=== PATIENT | male | born 1935 | race Caucasian/White ===

== ENCOUNTER 2017-03-16 22:20 | Emergency (ER) | payer OTHER ==
[~2017-03-16] VITALS: Ht 177.8 cm; Wt 72.6 kg
[2017-03-17] MEDS ORDERED: SODIUM CHLORIDE 0.9% 1,000 ML IV ONE
[2017-03-17 00:35] VITALS: BP 136/81
[2017-03-17 01:16] LABS: Basophils # (auto) 0.2 uL; Basophils % (auto) 1.3 % (0.0-2.0); Eosinophils # (auto) 0.4 uL; Eosinophils % (auto) 2.5 % (0.0-7.0); Hematocrit 33.6 % (41.0-53.0); Hemoglobin 10.7 g/dL (13.5-17.5); Lymphocytes # (auto) 0.7 uL; Lymphocytes % (auto) 4.9 % (10.0-50.0); Mean Corpuscular Hemoglobin 27.7 pg (28.0-32.0); Mean Corpuscular Hgb Conc. 31.8 g/dL (32.0-36.0); Mean Corpuscular Volume 87.1 fL (80.0-100.0); Mean Platelet Volume 8.8 fL (6.9-10.8); Monocytes # (auto) 0.7 uL; Monocytes % (auto) 5.1 % (0.0-12.0); Neutrophils # (auto) 12.5 uL; Neutrophils % (auto) 86.2 % (37.0-80.0); Nucleated Red Blood Cells % 0.4 %; Platelet Count (auto) 357 10^3/uL (140-450); White Blood Cell 14.5 10^3/uL (4.4-10.8)
[2017-03-17 01:17] LABS: Red Cell Distribution Width 20.4 % (11.8-14.3)
[2017-03-17 01:33] LABS: Albumin 2.8 g/dL (3.4-5.0); Potassium 3.4 mmol/L (3.5-5.1)
[2017-03-17 01:33] LABS: Urine Bilirubin Negative (Negative); Urine Blood Negative /uL (Negative); Urine Color Colorless (Yellow); Urine Glucose Normal (Normal); Urine Ketone Negative (Negative); Urine Nitrite Negative (Negative); Urine RBC <1 /hpf (0 - 3); Urine Urobilinogen Normal (Negative)
[2017-03-17 01:35] LABS: BUN/Creatinine Ratio 11.2; Bilirubin, Total 0.5 mg/dL (0.2-1.0); Total Protein 6.5 g/dL (6.4-8.2)
[2017-03-17 01:46] LABS: Temperature: 21.9 C (20.0-25.0)
[2017-03-17] MEDS ORDERED: LEVOFLOXACIN 750MG 150 ML IV ONE (02:00)
[2017-03-17 02:23] LABS: Anisocytosis Slight; Giant Platelets Few; Platelet Estimate Adequate
[2017-03-17 02:24] LABS: Large Platelets FEW; Ovalocytes FEW
[2017-03-17] MEDS ORDERED: FUROSEMIDE 20 MG/2 ML VIAL IV ONE (05:00)
[2017-03-17] MEDS ORDERED: POTASSIUM CHL 20 Meq TABLET PO ONE (05:00)
== END 2017-03-17 07:12 | disposition home or self-care (01) ==
LOC: EDBD 22:20 → ER 22:30
DX: J18.9 Pneumonia, unspecified organism (principal); D72.829 Elevated white blood cell count, unspecified; E86.0 Dehydration; E87.6 Hypokalemia; I11.0 Hypertensive heart disease with heart failure; I50.9 Heart failure, unspecified
CPT/HCPCS: 36415; 71010; 80053; 81001; 83735; 83880; 84484; 85025; 85379; 87040; 93005; 96361; 96365; 96366; 96375; 99285; J1940; J1956; J7030

== ENCOUNTER 2017-03-25 10:22 | Observation (INO) | payer OTHER ==
[~2017-03-25] VITALS: Ht 188 cm; Wt 72.6 kg
[2017-03-25 10:59] LABS: Basophils # (auto) 0.1 uL; Basophils % (auto) 0.8 % (0.0-2.0); Eosinophils # (auto) 0.4 uL; Eosinophils % (auto) 2.6 % (0.0-7.0); Hematocrit 38.4 % (41.0-53.0); Hemoglobin 12.2 g/dL (13.5-17.5); Lymphocytes # (auto) 0.7 uL; Lymphocytes % (auto) 4.7 % (10.0-50.0); Mean Corpuscular Hemoglobin 28.4 pg (28.0-32.0); Mean Corpuscular Hgb Conc. 31.7 g/dL (32.0-36.0); Mean Corpuscular Volume 89.6 fL (80.0-100.0); Monocytes # (auto) 0.9 uL; Monocytes % (auto) 5.9 % (0.0-12.0); Neutrophils # (auto) 12.5 uL; Nucleated Red Blood Cells % 0.3 %; Platelet Count (auto) 436 10^3/uL (140-450); Red Blood Cells 4.29 10^6/uL (4.5-5.90); Red Cell Distribution Width 20.5 % (11.8-14.3); White Blood Cell 14.6 10^3/uL (4.4-10.8)
[2017-03-25 11:25] LABS: Albumin 3.3 g/dL (3.4-5.0); BUN/Creatinine Ratio 12.9; Bilirubin, Total 1.1 mg/dL (0.2-1.0); Calcium 8.9 mg/dL (8.5-10.1); Potassium 4.4 mmol/L (3.5-5.1); Total Protein 7.5 g/dL (6.4-8.2)
[2017-03-25] MEDS ORDERED: FUROSEMIDE 40 MG/4 ML VIAL IV ONE (13:00)
[2017-03-25 14:02] LABS: Urine Bacteria NONE SEEN /hpf (None Seen); Urine Blood Negative /uL (Negative); Urine Mucus FEW (None Seen); Urine Specific Gravity 1.018 (1.001-1.035); Urine WBC <1 /hpf (0 - 3)
[2017-03-25] MEDS ORDERED: AZITHROMYCIN 500MG/ 250ML 250 ML IV ONE ×2 (14:15→16:30)
[2017-03-25] MEDS ORDERED: cefTRIAXone 1GM/10ml IVPUSH 10 ML IV ONE (14:15)
[2017-03-25 14:38] LABS: INR 1.23 (0.9-1.15); Partial Thromboplastin Time 44.2 sec (22.64-33.71); Prothrombin Time 13.4 sec (9.37-12.3)
[2017-03-25 20:21] VITALS: BP 174/95
== END 2017-03-25 20:37 | disposition short-term general hospital (02) | DRG 193 ==
LOC: EDBD 10:22 → ER 10:48 → OVERFLOW 10:52 → ER 20:37
PROVIDERS: ADMIT Family Medicine; ATTEND Family Medicine
DX: J18.9 Pneumonia, unspecified organism (principal); I50.43 Acute on chronic combined systolic (congestive) and diastolic (congestive) heart failure; I13.0 Hypertensive heart and chronic kidney disease with heart failure and stage 1 through stage 4 chronic kidney disease, or unspecified chronic kidney disease; N18.3 Chronic kidney disease, stage 3 (moderate); F32.9 Major depressive disorder, single episode, unspecified; F41.9 Anxiety disorder, unspecified; Z82.49 Family history of ischemic heart disease and other diseases of the circulatory system; Z95.0 Presence of cardiac pacemaker; Z85.828 Personal history of other malignant neoplasm of skin
CPT/HCPCS: 36415; 80053; 81001; 83605; 83735; 83880; 84443; 84484; 85025; 85610; 85730; 87040; 93005; 96365; 96366; 96375; 99291; G0378; J0456; J1940; 71010

== ENCOUNTER 2017-04-09 09:46 | Inpatient (IN) | payer OTHER ==
[~2017-04-09] VITALS: Ht 182.9 cm; Wt 75.7 kg
[2017-04-09 09:50] VITALS: BP 174/111
[2017-04-09] MEDS ORDERED: methylPREDNISolone SOD SUCC 125 MG/2 ML VL IV ONE (10:00)
[2017-04-09 10:13] LABS: Eosinophils # (auto) 0.1 uL; Hemoglobin 13.6 g/dL (13.5-17.5)
[2017-04-09 10:14] LABS: Basophils # (auto) 0.2 uL; Basophils % (auto) 0.9 % (0.0-2.0); Eosinophils % (auto) 0.5 % (0.0-7.0); Hematocrit 44.4 % (41.0-53.0); Lymphocytes # (auto) 1.7 uL; Lymphocytes % (auto) 6.7 % (10.0-50.0); Mean Corpuscular Hemoglobin 28.1 pg (28.0-32.0); Mean Corpuscular Hgb Conc. 30.6 g/dL (32.0-36.0); Mean Corpuscular Volume 91.8 fL (80.0-100.0); Monocytes # (auto) 0.7 uL; Monocytes % (auto) 2.7 % (0.0-12.0); Neutrophils # (auto) 22.4 uL; Neutrophils % (auto) 89.2 % (37.0-80.0); Nucleated Red Blood Cells % 0.9 %; Platelet Count (auto) 581 10^3/uL (140-450); Red Blood Cells 4.84 10^6/uL (4.5-5.90); White Blood Cell 25.1 10^3/uL (4.4-10.8)
[2017-04-09 10:22] LABS: Red Cell Distribution Width 21.7 % (11.8-14.3)
[2017-04-09 10:30] LABS: Albumin 3.2 g/dL (3.4-5.0); BUN/Creatinine Ratio 24.6; Calcium 8.5 mg/dL (8.5-10.1); Magnesium 2.4 mg/dL (1.6-2.6); Potassium 3.7 mmol/L (3.5-5.1)
[2017-04-09 10:33] LABS: Lactic Acid w/Reflex 5.4 mmol/L (0.4-2.0)
[2017-04-09 10:35] LABS: Bilirubin, Total 0.7 mg/dL (0.2-1.0); Total Protein 7.1 g/dL (6.4-8.2)
[2017-04-09] MEDS ORDERED: LEVOFLOXACIN 500MG 100 ML IV ONE (11:00)
[2017-04-09] MEDS ORDERED: HYDR10TA26 PO (11:51)
[2017-04-09] MEDS ORDERED: ALPR0.5T PO (11:51)
[2017-04-09] MEDS ORDERED: CARV12.544 PO (11:51)
[2017-04-09] MEDS ORDERED: LISI-275 PO (11:51)
[2017-04-09] MEDS ORDERED: AZIT250T8 PO (11:51)
[2017-04-09] MEDS ORDERED: AMOX500C2 PO (11:51)
[2017-04-09] MEDS ORDERED: FURO80TA3 PO (11:51)
[2017-04-09] MEDS ORDERED: MIRT30TA PO (11:51)
[2017-04-09] MEDS ORDERED: HYDR-531 PO (11:51)
[2017-04-09] MEDS ORDERED: POTA10TA51 PO (11:51)
[2017-04-09] MEDS ORDERED: FLUO20CA19 PO (11:51)
[2017-04-09] MEDS ORDERED: NITROGLYCERIN 0.4 MG SL TAB SL PRN (12:00)
[2017-04-09] MEDS ORDERED: ASPirin 81 mg TAB PO ONE (12:00)
[2017-04-09] MEDS ORDERED: MORPHINE SULF INJ 2 MG/ML SYRINGE 1ML IV PRN ×2 (12:00)
[2017-04-09] MEDS ORDERED: hydrALAZINE HCL 20 MG/ML VL IV PRN (12:00)
[2017-04-09] MEDS ORDERED: ONDANSETRON HCL 4 MG/2 ML VIAL IV PRN (12:00)
[2017-04-09] MEDS ORDERED: VANCOMYCIN PER PHARMACY 0 MG IV SCH (12:00)
[2017-04-09 13:39] LABS: Urine Bacteria None Seen /hpf (None Seen)
[2017-04-09] MEDS ORDERED: VANCOMYCIN 1GM/250ML 250 ML IV ONE (14:00)
[2017-04-09] MEDS ORDERED: FUROSEMIDE 40 MG/4 ML VIAL IV SCH (14:30)
[2017-04-09 14:39] LABS: Urine Specific Gravity 1.011 (1.001-1.035)
[2017-04-09 14:40] LABS: Urine Blood Normal /uL (Negative); Urine WBC 0-1 /hpf (0 - 3)
[2017-04-09 14:58] VITALS: BP 152/91
[2017-04-09] MEDS ORDERED: MIRTAZAPINE 30 MG TAB PO SCH (18:00)
[2017-04-09] MEDS: ALBUTEROL SULF 2.5 MG/0.5ML(0.5%) NEB SOLN NEB SCH (18:05)
[2017-04-09] MEDS: IPRATROPIUM BROM 0.5 MG/2.5ML INH SOL NEB SCH (18:05)
[2017-04-09] MEDS: HYDROcodone-ACET 10/325MG TAB PO PRN (19:41)
[2017-04-09 20:40] VITALS: BP 146/86
[2017-04-09 22:00] VITALS: BP 146/86
[2017-04-09] MEDS: CARVEDILOL 12.5 MG TAB PO SCH (22:24)
[2017-04-09] MEDS: ALPRAZolam 0.5 MG TAB PO PRN (22:26)
[2017-04-09] MEDS ORDERED: IPRAAER6 IN (22:33)
[2017-04-10] MEDS: ALBUTEROL SULF 2.5 MG/0.5ML(0.5%) NEB SOLN NEB SCH ×4 (00:08→18:35)
[2017-04-10] MEDS: IPRATROPIUM BROM 0.5 MG/2.5ML INH SOL NEB SCH ×4 (00:08→18:35)
[2017-04-10 05:00] VITALS: BP 136/84
[2017-04-10 07:03] LABS: Basophils # (auto) 0 uL; Basophils % (auto) 0.2 % (0.0-2.0); Eosinophils # (auto) 0 uL; Hematocrit 34.6 % (41.0-53.0); Hemoglobin 11.1 g/dL (13.5-17.5); Lymphocytes # (auto) 0.5 uL; Lymphocytes % (auto) 2.3 % (10.0-50.0); Mean Corpuscular Hemoglobin 28.3 pg (28.0-32.0); Mean Corpuscular Hgb Conc. 32.2 g/dL (32.0-36.0); Mean Corpuscular Volume 87.8 fL (80.0-100.0); Monocytes # (auto) 1.1 uL; Monocytes % (auto) 4.9 % (0.0-12.0); Neutrophils # (auto) 20.3 uL; Neutrophils % (auto) 92.6 % (37.0-80.0); Nucleated Red Blood Cells % 0.1 %; Platelet Count (auto) 347 10^3/uL (140-450); Red Blood Cells 3.94 10^6/uL (4.5-5.90); White Blood Cell 21.9 10^3/uL (4.4-10.8)
[2017-04-10 07:12] LABS: BUN/Creatinine Ratio 30.8; Calcium 8.3 mg/dL (8.5-10.1); Potassium 4.2 mmol/L (3.5-5.1); Red Cell Distribution Width 21.4 % (11.8-14.3)
[2017-04-10 07:36] VITALS: BP 153/95
[2017-04-10] MEDS: HYDROcodone-ACET 10/325MG TAB PO PRN (07:44)
[2017-04-10] MEDS ORDERED: FUROSEMIDE 20 MG/2 ML VIAL IV SCH (10:00)
[2017-04-10] MEDS: ASPirin 81 mg TAB PO SCH (10:07)
[2017-04-10] MEDS: FLUoxetine HCL 20 MG CAP PO SCH (10:07)
[2017-04-10] MEDS: CARVEDILOL 12.5 MG TAB PO SCH ×3 (10:07→22:00)
[2017-04-10] MEDS: POTASSIUM CHL 10% (20 MEQ/15ML) 15ml ORAL SOLN PO SCH (10:07)
[2017-04-10] MEDS: LEVOFLOXACIN 250MG 50 ML IV SCH (10:08)
[2017-04-10 12:13] VITALS: BP 148/89
[2017-04-10] MEDS ORDERED: ISOSORBIDE MONONITRATE 60 MG TAB PO ONE (12:15)
[2017-04-10] MEDS ORDERED: FUROSEMIDE 20 MG/2 ML VIAL IV ONE (12:15)
[2017-04-10] MEDS: hydrALAZINE HCL 25 MG TAB PO SCH ×2 (16:32→22:14)
[2017-04-10 16:46] VITALS: BP 141/79
[2017-04-10] MEDS ORDERED: DIGOXIN 0.125 MG TAB PO SCH (16:50)
[2017-04-10 22:00] VITALS: BP 146/78
[2017-04-10] MEDS: MIRTAZAPINE 30 MG TAB PO SCH (22:13)
[2017-04-10] MEDS: DIGOXIN 0.125 MG TAB PO SCH (22:13)
[2017-04-10] MEDS: ALPRAZolam 0.5 MG TAB PO PRN (23:38)
[2017-04-11] MEDS: ALBUTEROL SULF 2.5 MG/0.5ML(0.5%) NEB SOLN NEB SCH ×4 (00:09→21:14)
[2017-04-11] MEDS: IPRATROPIUM BROM 0.5 MG/2.5ML INH SOL NEB SCH ×4 (00:09→21:13)
[2017-04-11 05:00] VITALS: BP 167/105
[2017-04-11 07:00] VITALS: BP 160/80
[2017-04-11 08:23] LABS: Basophils # (auto) 0 uL; Basophils % (auto) 0.2 % (0.0-2.0); Eosinophils # (auto) 0.1 uL; Hemoglobin 12.4 g/dL (13.5-17.5); Platelet Count (auto) 454 10^3/uL (140-450)
[2017-04-11 08:27] LABS: Eosinophils % (auto) 0.7 % (0.0-7.0); Hematocrit 38.2 % (41.0-53.0); Lymphocytes # (auto) 0.8 uL; Lymphocytes % (auto) 4.1 % (10.0-50.0); Mean Corpuscular Hemoglobin 28.3 pg (28.0-32.0); Mean Corpuscular Hgb Conc. 32.5 g/dL (32.0-36.0); Mean Corpuscular Volume 87.3 fL (80.0-100.0); Monocytes % (auto) 5.2 % (0.0-12.0); Neutrophils % (auto) 89.8 % (37.0-80.0); Nucleated Red Blood Cells % 0.3 %; Red Blood Cells 4.38 10^6/uL (4.5-5.90); White Blood Cell 18.9 10^3/uL (4.4-10.8)
[2017-04-11 08:30] LABS: BUN/Creatinine Ratio 33.7; Calcium 8.5 mg/dL (8.5-10.1); Potassium 3.2 mmol/L (3.5-5.1)
[2017-04-11 08:42] LABS: Red Cell Distribution Width 21.4 % (11.8-14.3)
[2017-04-11 09:18] VITALS: BP 157/93
[2017-04-11] MEDS ORDERED: ISOSORBIDE MONONITRATE 60 MG TAB PO SCH (10:00)
[2017-04-11] MEDS: FLUoxetine HCL 20 MG CAP PO SCH (10:12)
[2017-04-11] MEDS: CARVEDILOL 12.5 MG TAB PO SCH ×2 (10:15→21:09)
[2017-04-11] MEDS: DIGOXIN 0.125 MG TAB PO SCH (10:15)
[2017-04-11] MEDS: hydrALAZINE HCL 25 MG TAB PO SCH ×2 (10:16→21:09)
[2017-04-11] MEDS: ASPirin 81 mg TAB PO SCH (10:16)
[2017-04-11] MEDS: FUROSEMIDE 40 MG/4 ML VIAL IV SCH (10:16)
[2017-04-11] MEDS: POTASSIUM CHL 10% (20 MEQ/15ML) 15ml ORAL SOLN PO SCH (10:17)
[2017-04-11] MEDS: LEVOFLOXACIN 250MG 50 ML IV SCH (10:17)
[2017-04-11] MEDS ORDERED: ISOSORBIDE MONONITRATE 60 MG TAB PO ONE (11:00)
[2017-04-11] MEDS ORDERED: POTASSIUM CHL 20 Meq TABLET PO ONE (11:00)
[2017-04-11 12:08] VITALS: BP 140/83
[2017-04-11] MEDS: NYSTATIN (MOUTH-THROAT) 500,000 UNITS/5 ML SUSP MT SCH ×3 (14:21→21:09)
[2017-04-11 17:21] VITALS: BP 152/89
[2017-04-11] MEDS: ALPRAZolam 0.5 MG TAB PO PRN (21:07)
[2017-04-11] MEDS: MIRTAZAPINE 30 MG TAB PO SCH (21:08)
[2017-04-11 21:58] VITALS: BP 159/86
[2017-04-11] MEDS: HYDROcodone-ACET 10/325MG TAB PO PRN (22:47)
[2017-04-12] MEDS: IPRATROPIUM BROM 0.5 MG/2.5ML INH SOL NEB SCH ×3 (00:43→12:00)
[2017-04-12] MEDS: ALBUTEROL SULF 2.5 MG/0.5ML(0.5%) NEB SOLN NEB SCH ×3 (00:43→12:00)
[2017-04-12 05:00] VITALS: BP 152/94
[2017-04-12] MEDS: NYSTATIN (MOUTH-THROAT) 500,000 UNITS/5 ML SUSP MT SCH ×2 (05:21→12:04)
[2017-04-12 07:43] VITALS: BP 170/103
[2017-04-12 07:50] LABS: Eosinophils # (auto) 0.5 uL; Neutrophils # (auto) 12.2 uL; White Blood Cell 14.4 10^3/uL (4.4-10.8)
[2017-04-12 07:52] LABS: Basophils # (auto) 0.2 uL; Basophils % (auto) 1.4 % (0.0-2.0); Eosinophils % (auto) 3.8 % (0.0-7.0); Hematocrit 38.1 % (41.0-53.0); Hemoglobin 11.9 g/dL (13.5-17.5); Lymphocytes # (auto) 0.6 uL; Lymphocytes % (auto) 4.2 % (10.0-50.0); Mean Corpuscular Hgb Conc. 31.3 g/dL (32.0-36.0); Mean Corpuscular Volume 89.4 fL (80.0-100.0); Monocytes # (auto) 0.8 uL; Monocytes % (auto) 5.7 % (0.0-12.0); Neutrophils % (auto) 84.9 % (37.0-80.0); Nucleated Red Blood Cells % 0.3 %; Platelet Count (auto) 511 10^3/uL (140-450); Red Blood Cells 4.26 10^6/uL (4.5-5.90)
[2017-04-12 08:10] LABS: Red Cell Distribution Width 20.9 % (11.8-14.3)
[2017-04-12] MEDS: FUROSEMIDE 40 MG/4 ML VIAL IV SCH (09:54)
[2017-04-12] MEDS: LEVOFLOXACIN 250MG 50 ML IV SCH (09:55)
[2017-04-12] MEDS: hydrALAZINE HCL 25 MG TAB PO SCH (09:55)
[2017-04-12] MEDS: ASPirin 81 mg TAB PO SCH (09:55)
[2017-04-12] MEDS: POTASSIUM CHL 10% (20 MEQ/15ML) 15ml ORAL SOLN PO SCH (09:56)
[2017-04-12] MEDS: CARVEDILOL 12.5 MG TAB PO SCH (09:56)
[2017-04-12] MEDS: FLUoxetine HCL 20 MG CAP PO SCH (09:57)
[2017-04-12] MEDS: DIGOXIN 0.125 MG TAB PO SCH (09:57)
[2017-04-12] MEDS ORDERED: ISOSORBIDE MONONITRATE 60 MG TAB PO SCH (10:00)
[2017-04-12 11:27] VITALS: BP 152/97
[2017-04-12 12:20] VITALS: BP 152/97
[2017-04-12 12:46] VITALS: BP 152/97
== END 2017-04-12 13:35 | disposition home or self-care (01) | DRG 871 ==
LOC: EDBD 09:46 → ER 09:46 → TELE 09:47 → TELE-CENTR 20:40
PROVIDERS: ADMIT Internal Medicine; ATTEND Internal Medicine
PROC: 5A09357 Assistance with Respiratory Ventilation, Less than 24 Consecutive Hours, Continuous Positive Airway Pressure (ICD-10-PCS; principal; 2017-04-09)
DX: A41.9 Sepsis, unspecified organism (principal); J18.9 Pneumonia, unspecified organism; J96.20 Acute and chronic respiratory failure, unspecified whether with hypoxia or hypercapnia; I50.43 Acute on chronic combined systolic (congestive) and diastolic (congestive) heart failure; J44.0 Chronic obstructive pulmonary disease with (acute) lower respiratory infection; I13.0 Hypertensive heart and chronic kidney disease with heart failure and stage 1 through stage 4 chronic kidney disease, or unspecified chronic kidney disease; I48.91 Unspecified atrial fibrillation; N18.3 Chronic kidney disease, stage 3 (moderate); J44.1 Chronic obstructive pulmonary disease with (acute) exacerbation; F32.9 Major depressive disorder, single episode, unspecified; F41.9 Anxiety disorder, unspecified; I49.3 Ventricular premature depolarization; I70.0 Atherosclerosis of aorta; Z79.899 Other long term (current) drug therapy; Z85.828 Personal history of other malignant neoplasm of skin; Z86.73 Personal history of transient ischemic attack (TIA), and cerebral infarction without residual deficits; Z95.0 Presence of cardiac pacemaker
CPT/HCPCS: 36415; 36600; 71045; 80048; 80053; 80061; 81001; 82805; 83605; 83735; 83880; 84484; 85025; 87040; 87081; 93005; 93306; 94640; 94660; 96361; 96365; 96375; 99291; J1956

== ENCOUNTER 2017-04-21 06:06 | Emergency (ER) | payer OTHER ==
[~2017-04-21] VITALS: Ht 182.9 cm; Wt 72.1 kg
[~2017-04-21 06:06] MED LIST: ALPR0.5T PO; AMOX500C2 PO; AZIT250T8 PO; CARV12.544 PO; FLUO20CA19 PO; FURO80TA3 PO; HYDR-531 PO; HYDR10TA26 PO; IPRAAER6 IN; LISI-275 PO; MIRT30TA PO; POTA10TA51 PO
[2017-04-21] MEDS ORDERED: SODIUM CHLORIDE 0.9% 1,000 ML IV ONE (07:14)
[2017-04-21] MEDS ORDERED: LABETALOL HCL 5 MG/ML ML 20ML VIAL IV ONE (07:15)
[2017-04-21 07:55] LABS: Eosinophils # (auto) 0.3 uL; Hemoglobin 11.7 g/dL (13.5-17.5); Lymphocytes # (auto) 0.6 uL
[2017-04-21 07:57] LABS: Basophils # (auto) 0.2 uL; Basophils % (auto) 1.2 % (0.0-2.0); Eosinophils % (auto) 2.1 % (0.0-7.0); Hematocrit 36.5 % (41.0-53.0); Mean Corpuscular Hemoglobin 28.9 pg (28.0-32.0); Mean Corpuscular Hgb Conc. 32.1 g/dL (32.0-36.0); Mean Corpuscular Volume 90.1 fL (80.0-100.0); Monocytes % (auto) 6.7 % (0.0-12.0); Neutrophils # (auto) 12.3 uL; Nucleated Red Blood Cells % 0.2 %; Platelet Count (auto) 564 10^3/uL (140-450); Red Blood Cells 4.06 10^6/uL (4.5-5.90); White Blood Cell 14.2 10^3/uL (4.4-10.8)
[2017-04-21 07:59] LABS: Red Cell Distribution Width 21.2 % (11.8-14.3)
[2017-04-21 08:23] LABS: Albumin 2.9 g/dL (3.4-5.0); BUN/Creatinine Ratio 17.6; Calcium 8.6 mg/dL (8.5-10.1); Magnesium 2.3 mg/dL (1.6-2.6)
[2017-04-21 08:26] LABS: Bilirubin, Total 1.1 mg/dL (0.2-1.0); Total Protein 6.6 g/dL (6.4-8.2)
[2017-04-21 08:28] LABS: Potassium 2.9 mmol/L (3.5-5.1)
[2017-04-21] MEDS ORDERED: POTASSIUM CHLORIDE 40 MEQ, LIDOCAINE 1% (LOCAL ANESTH.) 4 ML in SODIUM CHL 0.9% 100 ML IV ONE (08:30)
[2017-04-21] MEDS ORDERED: hydrALAZINE HCL 20 MG/ML VL IV ONE (10:45)
[2017-04-21] MEDS ORDERED: cefTRIAXone 1GM/10ml IVPUSH 10 ML IV ONE (11:45)
[2017-04-21] MEDS ORDERED: FUROSEMIDE 40 MG/4 ML VIAL IV ONE (12:00)
[2017-04-21] MEDS ORDERED: POTASSIUM CHL 10% (20 MEQ/15ML) 15ml ORAL SOLN PO ONE (13:45)
[2017-04-21 14:04] VITALS: BP 172/93
== END 2017-04-21 15:17 | disposition home or self-care (01) ==
LOC: ER 06:07
DX: J44.1 Chronic obstructive pulmonary disease with (acute) exacerbation (principal); I48.91 Unspecified atrial fibrillation; F32.9 Major depressive disorder, single episode, unspecified; I50.9 Heart failure, unspecified; I11.0 Hypertensive heart disease with heart failure; E87.6 Hypokalemia; R74.8 Abnormal levels of other serum enzymes; E44.0 Moderate protein-calorie malnutrition; Z68.21 Body mass index [BMI] 21.0-21.9, adult; Z96.89 Presence of other specified functional implants; Z85.038 Personal history of other malignant neoplasm of large intestine
CPT/HCPCS: 36415; 71046; 80053; 83735; 83880; 84443; 84484; 85025; 85379; 87040; 93005; 94761; 96361; 96365; 96366; 96375; 99285; J0360; J1940; J2001; J3480; J7030

== ENCOUNTER 2017-05-05 08:41 | Emergency (ER) | payer OTHER ==
[~2017-05-05] VITALS: Ht 182.9 cm; Wt 68.9 kg
[~2017-05-05 08:41] MED LIST changes: -AMOX500C2 PO; -AZIT250T8 PO
[2017-05-05 09:53] LABS: Basophils # (auto) 0.3 uL; Eosinophils # (auto) 0.3 uL; Hemoglobin 13.9 g/dL (13.5-17.5); Mean Corpuscular Hemoglobin 28.1 pg (28.0-32.0); Mean Corpuscular Volume 89.6 fL (80.0-100.0)
[2017-05-05 09:55] LABS: Basophils % (auto) 2.2 % (0.0-2.0); Eosinophils % (auto) 2.9 % (0.0-7.0); Hematocrit 44.1 % (41.0-53.0); Lymphocytes # (auto) 0.9 uL; Lymphocytes % (auto) 7.4 % (10.0-50.0); Mean Corpuscular Hgb Conc. 31.4 g/dL (32.0-36.0); Monocytes # (auto) 0.6 uL; Monocytes % (auto) 5.3 % (0.0-12.0); Neutrophils # (auto) 9.8 uL; Neutrophils % (auto) 82.2 % (37.0-80.0); Nucleated Red Blood Cells % 0.6 %; Platelet Count (auto) 469 10^3/uL (140-450); Red Blood Cells 4.92 10^6/uL (4.5-5.90); White Blood Cell 11.9 10^3/uL (4.4-10.8)
[2017-05-05 09:57] LABS: Red Cell Distribution Width 20.5 % (11.8-14.3)
[2017-05-05 10:08] LABS: Albumin 3.4 g/dL (3.4-5.0); Calcium 9.5 mg/dL (8.5-10.1); Potassium 3.3 mmol/L (3.5-5.1)
[2017-05-05 10:10] LABS: BUN/Creatinine Ratio 13.8
[2017-05-05 10:24] LABS: Bilirubin, Total 0.8 mg/dL (0.2-1.0); Total Protein 7.4 g/dL (6.4-8.2)
[2017-05-05] MEDS ORDERED: SODIUM CHLORIDE 0.9% 1,000 ML IV ONE (10:45)
[2017-05-05] MEDS ORDERED: ALBUTEROL SULF 2.5 MG/0.5ML(0.5%) NEB SOLN NEB ONE ×2 (10:45→12:15)
[2017-05-05] MEDS ORDERED: IPRATROPIUM BROM 0.5 MG/2.5ML INH SOL NEB ONE ×2 (10:45→12:15)
[2017-05-05] MEDS ORDERED: methylPREDNISolone SOD SUCC 125 MG/2 ML VL IV ONE (12:15)
[2017-05-05] MEDS ORDERED: hydrALAZINE HCL 20 MG/ML VL IV ONE (13:00)
[2017-05-05] MEDS ORDERED: POTASSIUM CHL 10% (20 MEQ/15ML) 15ml ORAL SOLN PO ONE (13:30)
[2017-05-05] MEDS ORDERED: FUROSEMIDE 40 MG/4 ML VIAL IV ONE (13:30)
[2017-05-05] MEDS ORDERED: LORazepam 2MG/ML-1ML VIAL IV ONE (14:15)
[2017-05-05] MEDS ORDERED: ENOXAPARIN SOD 80 MG/0.8ML SYRINGE SC ONE (15:30)
[2017-05-05 16:40] VITALS: BP 167/93
== END 2017-05-05 16:50 | disposition short-term general hospital (02) ==
LOC: ER 08:41
DX: I11.0 Hypertensive heart disease with heart failure (principal); I50.9 Heart failure, unspecified; J44.1 Chronic obstructive pulmonary disease with (acute) exacerbation; I48.91 Unspecified atrial fibrillation; E11.9 Type 2 diabetes mellitus without complications; E87.6 Hypokalemia; Z95.0 Presence of cardiac pacemaker
CPT/HCPCS: 36415; 71046; 80053; 83735; 83880; 84443; 84484; 85025; 85379; 93005; 94640; 94761; 96361; 96374; 96375; 99285; J0360; J1940; J2930; J7030

== ENCOUNTER 2017-05-22 13:05 | Inpatient (IN) | payer OTHER ==
[~2017-05-22] VITALS: Ht 185.4 cm; Wt 74.8 kg
[2017-05-22 13:41] LABS: Eosinophils # (auto) 0.2 uL; Lymphocytes # (auto) 1.2 uL; Lymphocytes % (auto) 7.8 % (10.0-50.0)
[2017-05-22 13:42] LABS: Basophils # (auto) 0.1 uL; Basophils % (auto) 0.4 % (0.0-2.0); Eosinophils % (auto) 1.1 % (0.0-7.0); Hematocrit 42.1 % (41.0-53.0); Hemoglobin 13.4 g/dL (13.5-17.5); Mean Corpuscular Hemoglobin 28.1 pg (28.0-32.0); Mean Corpuscular Hgb Conc. 31.8 g/dL (32.0-36.0); Mean Corpuscular Volume 88.3 fL (80.0-100.0); Monocytes # (auto) 0.5 uL; Monocytes % (auto) 3.4 % (0.0-12.0); Neutrophils # (auto) 13.7 uL; Neutrophils % (auto) 87.3 % (37.0-80.0); Nucleated Red Blood Cells % 0.3 %; Platelet Count (auto) 462 10^3/uL (140-450); Red Blood Cells 4.77 10^6/uL (4.5-5.90); White Blood Cell 15.6 10^3/uL (4.4-10.8)
[2017-05-22 13:59] LABS: BUN/Creatinine Ratio 13.9; Calcium 8.6 mg/dL (8.5-10.1); Magnesium 2.1 mg/dL (1.6-2.6); Potassium 3.3 mmol/L (3.5-5.1)
[2017-05-22 14:04] LABS: Bilirubin, Total 0.8 mg/dL (0.2-1.0); Total Protein 6.9 g/dL (6.4-8.2)
[2017-05-22] MEDS ORDERED: cefTRIAXone 1GM/10ml IVPUSH 10 ML IV ONE (15:15)
[2017-05-22] MEDS ORDERED: AZITHROMYCIN 500MG/ 250ML 250 ML IV ONE (15:15)
[2017-05-22] MEDS ORDERED: POTASSIUM CHL 20 Meq TABLET PO ONE (15:15)
[2017-05-22] MEDS ORDERED: HYDROcodone-ACET 10/325MG TAB PO PRN (15:15)
[2017-05-22] MEDS ORDERED: FUROSEMIDE 40 MG/4 ML VIAL IV ONE ×2 (15:15→16:00)
[2017-05-22] MEDS ORDERED: ALPRAZolam 0.5 MG TAB PO PRN (15:15)
[2017-05-22] MEDS ORDERED: MORPHINE SULFATE 4 MG/ML SYR/VIAL IV PRN ×2 (15:30)
[2017-05-22] MEDS ORDERED: DOCUSATE SOD 100 MG CAP PO PRN (15:30)
[2017-05-22] MEDS ORDERED: ONDANSETRON HCL 4 MG/2 ML VIAL IV PRN (15:30)
[2017-05-22] MEDS ORDERED: LISINOPRIL 5 MG TAB PO ONE (15:30)
[2017-05-22] MEDS ORDERED: ACETAMINOPHEN 325 MG TAB PO PRN (15:30)
[2017-05-22] MEDS ORDERED: NITROGLYCERIN 0.4 MG SL TAB SL PRN (15:30)
[2017-05-22 15:42] LABS: Urine WBC None Seen /hpf (0 - 3)
[2017-05-22] MEDS ORDERED: cloNIDine HCL 0.1 MG TAB PO PRN (15:45)
[2017-05-22] MEDS: ISOSORBIDE MONONITRATE 60 MG TAB PO ONE ×2 (16:23→17:49)
[2017-05-22 16:31] LABS: Urine Bacteria NONE SEEN /hpf (None Seen); Urine Blood Negative /uL (Negative); Urine Specific Gravity 1.013 (1.001-1.035)
[2017-05-22 17:26] VITALS: BP 193/106
[2017-05-22] MEDS ORDERED: hydrALAZINE HCL 10 MG TAB PO SCH (18:00)
[2017-05-22] MEDS: ALBUTEROL SULF 2.5 MG/0.5ML(0.5%) NEB SOLN NEB SCH (18:20)
[2017-05-22] MEDS: IPRATROPIUM BROM 0.5 MG/2.5ML INH SOL NEB SCH (18:21)
[2017-05-22 18:27] LABS: Lactic Acid w/Reflex 2.6 mmol/L (0.4-2.0)
[2017-05-22] MEDS: hydrALAZINE HCL 25 MG TAB PO SCH (18:39)
[2017-05-22] MEDS: BOOST PLUS 8 ounce PO SCH (21:20)
[2017-05-22 22:00] VITALS: BP 131/75
[2017-05-22] MEDS: SODIUM CHLOR 0.9% PF (SALINE LOCK) 10ML VIAL IV SCH (22:48)
[2017-05-22] MEDS: TEMAZEPAM 15 MG CAP PO PRN (22:48)
[2017-05-22] MEDS: POTASSIUM CHL 10 Meq TABLET PO SCH (22:49)
[2017-05-22] MEDS: CARVEDILOL 12.5 MG TAB PO SCH (22:49)
[2017-05-22] MEDS: MIRTAZAPINE 30 MG TAB PO SCH (22:49)
[2017-05-22] MEDS: FAMOTIDINE 20 MG TAB PO SCH (22:49)
[2017-05-23] VITALS: BP 139/88
[2017-05-23] MEDS: ALBUTEROL SULF 2.5 MG/0.5ML(0.5%) NEB SOLN NEB SCH ×4 (00:48→19:44)
[2017-05-23] MEDS: IPRATROPIUM BROM 0.5 MG/2.5ML INH SOL NEB SCH ×4 (00:48→19:44)
[2017-05-23 05:00] VITALS: BP 114/73
[2017-05-23] MEDS: FUROSEMIDE 40 MG/4 ML VIAL IV SCH ×2 (05:23→18:41)
[2017-05-23] MEDS: SODIUM CHLOR 0.9% PF (SALINE LOCK) 10ML VIAL IV SCH ×3 (05:23→21:36)
[2017-05-23 05:58] LABS: Basophils # (auto) 0.1 uL; Basophils % (auto) 0.8 % (0.0-2.0); Eosinophils # (auto) 0 uL; Eosinophils % (auto) 0.4 % (0.0-7.0); Hematocrit 31.2 % (41.0-53.0); Hemoglobin 10.1 g/dL (13.5-17.5); Mean Corpuscular Hemoglobin 28.3 pg (28.0-32.0); Mean Corpuscular Hgb Conc. 32.4 g/dL (32.0-36.0); Mean Corpuscular Volume 87.4 fL (80.0-100.0); Monocytes # (auto) 0.8 uL; Monocytes % (auto) 6.8 % (0.0-12.0); Neutrophils # (auto) 10.2 uL; Nucleated Red Blood Cells % 0.1 %; Platelet Count (auto) 258 10^3/uL (140-450); Red Blood Cells 3.57 10^6/uL (4.5-5.90); Red Cell Distribution Width 19.8 % (11.8-14.3); White Blood Cell 12.2 10^3/uL (4.4-10.8)
[2017-05-23 06:08] LABS: Albumin 2.3 g/dL (3.4-5.0); BUN/Creatinine Ratio 13.5; Potassium 3.6 mmol/L (3.5-5.1)
[2017-05-23 06:12] LABS: Bilirubin, Total 1.1 mg/dL (0.2-1.0); Total Protein 5.3 g/dL (6.4-8.2)
[2017-05-23 08:00] VITALS: BP 124/85
[2017-05-23] MEDS: BOOST PLUS 8 ounce PO SCH ×3 (08:00→18:45)
[2017-05-23] MEDS: cefTRIAXone 1GM/10ml IVPUSH 10 ML IV SCH (08:37)
[2017-05-23] MEDS: hydrALAZINE HCL 25 MG TAB PO SCH ×2 (08:37→18:44)
[2017-05-23] MEDS ORDERED: LISINOPRIL 5 MG TAB PO SCH (10:00)
[2017-05-23] MEDS ORDERED: AZITHROMYCIN 500MG/ 250ML 250 ML IV SCH (10:00)
[2017-05-23] MEDS: MULTIPLE VITAMIN TAB PO SCH (10:06)
[2017-05-23] MEDS: POTASSIUM CHL 10 Meq TABLET PO SCH ×2 (10:07→21:36)
[2017-05-23] MEDS: CARVEDILOL 12.5 MG TAB PO SCH ×2 (10:07→21:36)
[2017-05-23] MEDS: ISOSORBIDE MONONITRATE 60 MG TAB PO SCH (10:07)
[2017-05-23] MEDS: FAMOTIDINE 20 MG TAB PO SCH ×2 (10:07→21:36)
[2017-05-23] MEDS: FLUoxetine HCL 20 MG CAP PO SCH (10:08)
[2017-05-23 12:00] VITALS: BP 126/84
[2017-05-23 16:59] VITALS: BP 128/88
[2017-05-23] MEDS: MIRTAZAPINE 30 MG TAB PO SCH (21:36)
[2017-05-23] MEDS: TEMAZEPAM 15 MG CAP PO PRN (21:36)
[2017-05-24] MEDS: ALBUTEROL SULF 2.5 MG/0.5ML(0.5%) NEB SOLN NEB SCH ×2 (01:07→07:54)
[2017-05-24] MEDS: IPRATROPIUM BROM 0.5 MG/2.5ML INH SOL NEB SCH ×2 (01:08→07:54)
[2017-05-24 05:29] VITALS: BP 159/101
[2017-05-24] MEDS: FUROSEMIDE 40 MG/4 ML VIAL IV SCH (05:43)
[2017-05-24] MEDS: SODIUM CHLOR 0.9% PF (SALINE LOCK) 10ML VIAL IV SCH (05:43)
[2017-05-24 05:45] VITALS: BP 155/83
[2017-05-24 06:39] LABS: Basophils # (auto) 0.1 uL; Basophils % (auto) 1.6 % (0.0-2.0); Eosinophils # (auto) 0.1 uL; Eosinophils % (auto) 1.9 % (0.0-7.0); Hematocrit 32.2 % (41.0-53.0); Hemoglobin 10.5 g/dL (13.5-17.5); Lymphocytes # (auto) 0.7 uL; Lymphocytes % (auto) 8.7 % (10.0-50.0); Mean Corpuscular Hemoglobin 28.5 pg (28.0-32.0); Mean Corpuscular Hgb Conc. 32.6 g/dL (32.0-36.0); Mean Corpuscular Volume 87.4 fL (80.0-100.0); Monocytes # (auto) 0.7 uL; Monocytes % (auto) 9.5 % (0.0-12.0); Neutrophils # (auto) 5.9 uL; Neutrophils % (auto) 78.3 % (37.0-80.0); Nucleated Red Blood Cells % 0.3 %; Platelet Count (auto) 311 10^3/uL (140-450); Red Blood Cells 3.69 10^6/uL (4.5-5.90); White Blood Cell 7.5 10^3/uL (4.4-10.8)
[2017-05-24 06:52] LABS: BUN/Creatinine Ratio 22.8; Calcium 8.4 mg/dL (8.5-10.1); Potassium 3.1 mmol/L (3.5-5.1)
[2017-05-24 07:16] LABS: Red Cell Distribution Width 20.2 % (11.8-14.3)
[2017-05-24] MEDS: BOOST PLUS 8 ounce PO SCH (08:00)
[2017-05-24] MEDS: hydrALAZINE HCL 25 MG TAB PO SCH (08:40)
[2017-05-24] MEDS: cefTRIAXone 1GM/10ml IVPUSH 10 ML IV SCH (08:40)
[2017-05-24 09:02] VITALS: BP 155/97
[2017-05-24] MEDS ORDERED: AZITHROMYCIN 250 MG TAB PO SCH (10:00)
[2017-05-24] MEDS ORDERED: POTASSIUM CHL 10 Meq TABLET PO SCH (10:00)
[2017-05-24] MEDS: ISOSORBIDE MONONITRATE 60 MG TAB PO SCH (10:03)
[2017-05-24] MEDS: MULTIPLE VITAMIN TAB PO SCH (10:04)
[2017-05-24] MEDS: CARVEDILOL 12.5 MG TAB PO SCH (10:04)
[2017-05-24] MEDS: FAMOTIDINE 20 MG TAB PO SCH (10:05)
[2017-05-24] MEDS: FLUoxetine HCL 20 MG CAP PO SCH (10:05)
[2017-05-24 11:59] VITALS: BP 135/72
[2017-05-24 12:51] VITALS: BP 132/88
== END 2017-05-24 15:00 | disposition home or self-care (01) | DRG 291 ==
LOC: ER 13:05 → EDBD 13:05 → TELE 13:06 → TELE-WESTW 22:00
PROVIDERS: ADMIT Internal Medicine; ATTEND Internal Medicine
DX: I13.0 Hypertensive heart and chronic kidney disease with heart failure and stage 1 through stage 4 chronic kidney disease, or unspecified chronic kidney disease (principal); J96.00 Acute respiratory failure, unspecified whether with hypoxia or hypercapnia; E44.0 Moderate protein-calorie malnutrition; I48.92 Unspecified atrial flutter; J44.0 Chronic obstructive pulmonary disease with (acute) lower respiratory infection; I48.91 Unspecified atrial fibrillation; D63.8 Anemia in other chronic diseases classified elsewhere; E87.6 Hypokalemia; F32.9 Major depressive disorder, single episode, unspecified; I50.43 Acute on chronic combined systolic (congestive) and diastolic (congestive) heart failure; J44.1 Chronic obstructive pulmonary disease with (acute) exacerbation; N18.3 Chronic kidney disease, stage 3 (moderate); I70.0 Atherosclerosis of aorta; Z85.828 Personal history of other malignant neoplasm of skin; Z68.21 Body mass index [BMI] 21.0-21.9, adult; Z88.8 Allergy status to other drugs, medicaments and biological substances
CPT/HCPCS: 36415; 36600; 71045; 80048; 80053; 81001; 82805; 83605; 83735; 83880; 84484; 85025; 87040; 87086; 93005; 94640; 96365; 96375

== ENCOUNTER 2017-05-31 05:04 | Inpatient (IN) | payer OTHER ==
[~2017-05-31] VITALS: Ht 182.9 cm; Wt 64.2 kg
[2017-05-31 06:37] LABS: INR 1.41 (0.9-1.15); Partial Thromboplastin Time 54.4 sec (22.64-33.71); Prothrombin Time 15.4 sec (9.37-12.3)
[2017-05-31 06:42] LABS: Basophils # (auto) 0.2 uL; Basophils % (auto) 1.2 % (0.0-2.0); Eosinophils # (auto) 0.2 uL; Hematocrit 38.9 % (41.0-53.0); Hemoglobin 12.3 g/dL (13.5-17.5); Mean Corpuscular Hemoglobin 27.9 pg (28.0-32.0); Mean Corpuscular Hgb Conc. 31.6 g/dL (32.0-36.0); Mean Corpuscular Volume 88.6 fL (80.0-100.0); Monocytes # (auto) 0.9 uL; Monocytes % (auto) 5.7 % (0.0-12.0); Neutrophils # (auto) 14.4 uL; Neutrophils % (auto) 86.1 % (37.0-80.0); Nucleated Red Blood Cells % 0.5 %; Platelet Count (auto) 442 10^3/uL (140-450); Red Blood Cells 4.39 10^6/uL (4.5-5.90); White Blood Cell 16.7 10^3/uL (4.4-10.8)
[2017-05-31 06:43] LABS: Red Cell Distribution Width 20.6 % (11.8-14.3)
[2017-05-31 06:51] LABS: Calcium 8.5 mg/dL (8.5-10.1); Magnesium 2.2 mg/dL (1.6-2.6); Potassium 3.4 mmol/L (3.5-5.1)
[2017-05-31 06:53] LABS: BUN/Creatinine Ratio 13.2
[2017-05-31 06:58] LABS: Bilirubin, Total 0.9 mg/dL (0.2-1.0); Total Protein 6.9 g/dL (6.4-8.2)
[2017-05-31] MEDS ORDERED: PIPERACILLIN-TAZOB 3.375GM 50 ML IV ONE (07:15)
[2017-05-31] MEDS ORDERED: HYDROcodone-ACET 5/325MG TAB PO PRN (08:45)
[2017-05-31] MEDS ORDERED: PROMETHAZINE HCL 25 MG/ML 1ML IV PRN (08:45)
[2017-05-31] MEDS ORDERED: NITROGLYCERIN 0.4 MG SL TAB SL PRN (08:45)
[2017-05-31] MEDS ORDERED: ACETAMINOPHEN 500 MG TAB PO PRN (08:45)
[2017-05-31] MEDS ORDERED: TEMAZEPAM 15 MG CAP PO PRN (08:45)
[2017-05-31] MEDS ORDERED: LORazepam 0.5 MG TAB PO PRN (08:45)
[2017-05-31] MEDS ORDERED: MORPHINE SULFATE 4 MG/ML SYR/VIAL IV PRN ×2 (08:45)
[2017-05-31] MEDS ORDERED: LACTULOSE 20Gm/30ML SOLN PO PRN ×2 (08:45)
[2017-05-31] MEDS ORDERED: ALBUTEROL SULF 2.5 MG/0.5ML(0.5%) NEB SOLN NEB PRN (08:45)
[2017-05-31] MEDS: cefTRIAXone 1GM/10ml IVPUSH 10 ML IV SCH (09:04)
[2017-05-31] MEDS ORDERED: OSELTAMIVIR 30 MG CAP PO ONE (09:15)
[2017-05-31] MEDS: ASPirin 81 mg TAB PO SCH (09:42)
[2017-05-31] MEDS ORDERED: ENALAPRIL MALEATE 2.5 MG TAB PO SCH (10:00)
[2017-05-31] MEDS ORDERED: FUROSEMIDE 40 MG/4 ML VIAL IV SCH (10:00)
[2017-05-31] MEDS ORDERED: NITROGLYCERIN 0.2MG/HR TOPICAL PATCH TD SCH (10:00)
[2017-05-31] MEDS ORDERED: POTASSIUM CHL 20 Meq TABLET PO SCH (10:00)
[2017-05-31] MEDS ORDERED: CARVEDILOL 3.125 MG TAB PO SCH (10:00)
[2017-05-31 10:17] VITALS: BP 177/98
[2017-05-31] MEDS ORDERED: POTASSIUM CHL 20 Meq TABLET PO ONE (11:00)
[2017-05-31] MEDS ORDERED: FUROSEMIDE 40 MG/4 ML VIAL IV ONE (11:00)
[2017-05-31] MEDS: LISINOPRIL 10 MG TAB PO SCH (11:49)
[2017-05-31] MEDS: CARVEDILOL 3.125 MG TAB PO SCH ×2 (11:50→21:19)
[2017-05-31] MEDS: AZITHROMYCIN 500MG/ 250ML 250 ML IV SCH (11:50)
[2017-05-31] MEDS ORDERED: ALBUTEROL SULF 2.5 MG/0.5ML(0.5%) NEB SOLN NEB SCH (12:00)
[2017-05-31 12:51] VITALS: BP 147/88
[2017-05-31] MEDS: IPRATROPIUM BROM 0.5 MG/2.5ML INH SOL NEB SCH ×2 (14:28→18:52)
[2017-05-31 16:16] VITALS: BP 152/104
[2017-05-31] MEDS: FUROSEMIDE 40 MG/4 ML VIAL IV SCH (18:09)
[2017-05-31] MEDS ORDERED: LISI10TA6 PO (18:35)
[2017-05-31] MEDS ORDERED: HYDR50TA15 PO (18:45)
[2017-05-31] MEDS ORDERED: POTA20TA53 PO (18:45)
[2017-05-31] MEDS ORDERED: DABI150C PO (18:45)
[2017-05-31] MEDS: SODIUM CHLOR 0.9% PF (SALINE LOCK) 10ML VIAL IV SCH ×2 (18:53→21:19)
[2017-05-31 21:16] LABS: Urine Bacteria NONE SEEN /hpf (None Seen); Urine Blood Negative /uL (Negative); Urine Specific Gravity 1.005 (1.001-1.035); Urine WBC 1 /hpf (0 - 3)
[2017-05-31 21:47] VITALS: BP 146/98
[2017-05-31] MEDS ORDERED: OSELTAMIVIR 30 MG CAP PO SCH (22:00)
[2017-06-01 04:36] VITALS: BP 145/86
[2017-06-01] MEDS: SODIUM CHLOR 0.9% PF (SALINE LOCK) 10ML VIAL IV SCH (05:34)
[2017-06-01] MEDS: FUROSEMIDE 40 MG/4 ML VIAL IV SCH (05:35)
[2017-06-01 05:59] LABS: Hematocrit 32.8 % (41.0-53.0); Hemoglobin 10.5 g/dL (13.5-17.5); Mean Corpuscular Hemoglobin 28.2 pg (28.0-32.0); Mean Corpuscular Hgb Conc. 32.1 g/dL (32.0-36.0); Mean Corpuscular Volume 87.9 fL (80.0-100.0); Platelet Count (auto) 346 10^3/uL (140-450); Red Blood Cells 3.74 10^6/uL (4.5-5.90); White Blood Cell 10.3 10^3/uL (4.4-10.8)
[2017-06-01 06:07] LABS: Red Cell Distribution Width 20.4 % (11.8-14.3)
[2017-06-01 06:11] LABS: Basophils % (manual) 0 (0.0-2.0); Blast Cells 0; Eosinophils % (manual) 0 (0-7); Metamyelocytes % 0; Myelocytes % 0; Promyelocytes % 0; Reactive Lymphocytes 0
[2017-06-01 06:20] LABS: Albumin 2.4 g/dL (3.4-5.0); BUN/Creatinine Ratio 15.1; Bilirubin, Total 0.9 mg/dL (0.2-1.0); Calcium 8.2 mg/dL (8.5-10.1); Potassium 3.3 mmol/L (3.5-5.1); Total Protein 5.8 g/dL (6.4-8.2)
[2017-06-01] MEDS: IPRATROPIUM BROM 0.5 MG/2.5ML INH SOL NEB SCH ×3 (06:34→11:54)
[2017-06-01 07:36] LABS: Band Neutrophils % (manual) 3; Lymphocytes % (manual) 11 (10.0-50.0); Monocytes % (manual) 3 (0-12)
[2017-06-01] MEDS: POTASSIUM CHL 20 Meq TABLET PO SCH ×2 (08:22→12:00)
[2017-06-01] MEDS: cefTRIAXone 1GM/10ml IVPUSH 10 ML IV SCH (08:22)
[2017-06-01 09:00] VITALS: BP_SYST 131; BP_SYST 150; BP_DIAS 83; BP_DIAS 92
[2017-06-01] MEDS: ASPirin 81 mg TAB PO SCH (09:26)
[2017-06-01] MEDS: AZITHROMYCIN 500MG/ 250ML 250 ML IV SCH (09:28)
[2017-06-01] MEDS: LISINOPRIL 10 MG TAB PO SCH (09:28)
[2017-06-01] MEDS ORDERED: CARVEDILOL 12.5 MG TAB PO SCH (10:00)
[2017-06-01 13:00] VITALS: BP 134/93
[2017-06-01 14:27] VITALS: BP 134/93
[2017-06-01 16:07] VITALS: BP 150/100
[2017-06-01 17:24] VITALS: BP 134/93
== END 2017-06-01 18:35 | disposition home or self-care (01) | DRG 871 ==
LOC: EDBD 05:04 → ER 05:04 → TELE 05:05 → TELE-WESTW 09:55
PROVIDERS: ADMIT Internal Medicine; ATTEND Family Medicine
DX: A41.9 Sepsis, unspecified organism (principal); J18.1 Lobar pneumonia, unspecified organism; I50.43 Acute on chronic combined systolic (congestive) and diastolic (congestive) heart failure; I42.0 Dilated cardiomyopathy; I11.0 Hypertensive heart disease with heart failure; I48.91 Unspecified atrial fibrillation; J44.0 Chronic obstructive pulmonary disease with (acute) lower respiratory infection; I48.92 Unspecified atrial flutter; J44.1 Chronic obstructive pulmonary disease with (acute) exacerbation; I16.0 Hypertensive urgency; C44.209 Unspecified malignant neoplasm of skin of left ear and external auricular canal; E87.6 Hypokalemia; F32.9 Major depressive disorder, single episode, unspecified; F41.9 Anxiety disorder, unspecified; I50.9 Heart failure, unspecified; Z83.3 Family history of diabetes mellitus; Z82.49 Family history of ischemic heart disease and other diseases of the circulatory system; Z85.828 Personal history of other malignant neoplasm of skin; Z87.891 Personal history of nicotine dependence; Z95.0 Presence of cardiac pacemaker; Z88.8 Allergy status to other drugs, medicaments and biological substances; Z79.899 Other long term (current) drug therapy; Z90.89 Acquired absence of other organs
CPT/HCPCS: 36415; 36600; 71045; 71250; 80053; 81001; 82550; 82805; 83605; 83735; 83880; 84443; 84484; 85007; 85025; 85027; 85610; 85730; 87040; 87081; 87804; 93005; 94640; 96365; 96375; J2543

== ENCOUNTER 2017-06-18 11:53 | Emergency (ER) | payer OTHER ==
[~2017-06-18] VITALS: Ht 172.7 cm; Wt 68.0 kg
[~2017-06-18 11:53] MED LIST changes: +DABI150C PO; -HYDR10TA26 PO; +HYDR50TA15 PO; -LISI-275 PO; +LISI10TA6 PO; -POTA10TA51 PO; +POTA20TA53 PO
[2017-06-18] MEDS ORDERED: SODIUM CHLORIDE 0.9% 1,000 ML IV ONE (12:13)
[2017-06-18] MEDS ORDERED: methylPREDNISolone SOD SUCC 125 MG/2 ML VL IV ONE (12:15)
[2017-06-18 13:35] LABS: Hematocrit 37.9 % (41.0-53.0); Mean Corpuscular Hemoglobin 28.1 pg (28.0-32.0); Mean Corpuscular Hgb Conc. 31.5 g/dL (32.0-36.0); Mean Corpuscular Volume 89.2 fL (80.0-100.0); Platelet Count (auto) 435 10^3/uL (140-450); Red Blood Cells 4.25 10^6/uL (4.5-5.90); White Blood Cell 13.9 10^3/uL (4.4-10.8)
[2017-06-18 13:41] LABS: Albumin 3.1 g/dL (3.4-5.0); BUN/Creatinine Ratio 13.1; Magnesium 2.2 mg/dL (1.6-2.6); Potassium 3.7 mmol/L (3.5-5.1)
[2017-06-18 13:46] LABS: Bilirubin, Total 0.8 mg/dL (0.2-1.0); Total Protein 7.1 g/dL (6.4-8.2)
[2017-06-18 14:12] LABS: Band Neutrophils % (manual) 0; Basophils % (manual) 0 (0.0-2.0)
[2017-06-18 14:13] LABS: Blast Cells 0; Metamyelocytes % 0; Myelocytes % 0; Promyelocytes % 0; Reactive Lymphocytes 0
[2017-06-18 14:31] LABS: Urine Bacteria NONE SEEN /hpf (None Seen); Urine Blood Negative /uL (Negative); Urine Specific Gravity 1.008 (1.001-1.035); Urine WBC 6 /hpf (0 - 3)
[2017-06-18 14:49] LABS: Eosinophils % (manual) 1 (0-7); Lymphocytes % (manual) 8 (10.0-50.0); Monocytes % (manual) 7 (0-12)
[2017-06-18] MEDS ORDERED: FUROSEMIDE 40 MG/4 ML VIAL IV ONE (15:00)
[2017-06-18 18:09] VITALS: BP 164/90
== END 2017-06-18 18:39 | disposition short-term general hospital (02) ==
LOC: ER 11:53 → EDUNIT# 11:53 → EDBD 11:53 → ER 18:39
DX: I11.0 Hypertensive heart disease with heart failure (principal); I50.9 Heart failure, unspecified; J44.9 Chronic obstructive pulmonary disease, unspecified; I48.91 Unspecified atrial fibrillation; I25.10 Atherosclerotic heart disease of native coronary artery without angina pectoris; E78.5 Hyperlipidemia, unspecified; Z85.828 Personal history of other malignant neoplasm of skin; Z95.0 Presence of cardiac pacemaker; Z86.73 Personal history of transient ischemic attack (TIA), and cerebral infarction without residual deficits; Z87.891 Personal history of nicotine dependence
CPT/HCPCS: 36415; 71045; 80053; 81001; 83605; 83735; 83880; 84484; 85007; 85027; 85379; 87040; 94761; 96361; 96374; 96375; 99285; J1940; J2930; 93005

== ENCOUNTER 2017-06-27 08:39 | Emergency (ER) | payer OTHER ==
[~2017-06-27] VITALS: Ht 182.9 cm; Wt 72.6 kg
[2017-06-27 09:27] LABS: Basophils # (auto) 0.2 uL; Basophils % (auto) 0.9 % (0.0-2.0); Eosinophils # (auto) 0.4 uL; Eosinophils % (auto) 1.9 % (0.0-7.0); Hematocrit 35.3 % (41.0-53.0); Hemoglobin 11.3 g/dL (13.5-17.5); Lymphocytes # (auto) 1.4 uL; Lymphocytes % (auto) 7.3 % (10.0-50.0); Mean Corpuscular Hemoglobin 28.5 pg (28.0-32.0); Mean Corpuscular Volume 89.2 fL (80.0-100.0); Monocytes # (auto) 1.4 uL; Neutrophils # (auto) 16.4 uL; Neutrophils % (auto) 82.9 % (37.0-80.0); Nucleated Red Blood Cells % 1.9 %; Platelet Count (auto) 438 10^3/uL (140-450); Red Blood Cells 3.96 10^6/uL (4.5-5.90); White Blood Cell 19.8 10^3/uL (4.4-10.8)
[2017-06-27 09:35] LABS: Red Cell Distribution Width 21.1 % (11.8-14.3)
[2017-06-27 09:58] LABS: Albumin 3.1 g/dL (3.4-5.0); BUN/Creatinine Ratio 17.1; Calcium 8.8 mg/dL (8.5-10.1); Potassium 3.7 mmol/L (3.5-5.1)
[2017-06-27 10:04] LABS: Bilirubin, Total 1.2 mg/dL (0.2-1.0); Total Protein 6.9 g/dL (6.4-8.2)
[2017-06-27] MEDS ORDERED: FUROSEMIDE 40 MG/4 ML VIAL IV ONE (12:15)
[2017-06-27] MEDS ORDERED: SPIRONOLACTONE 25 MG TAB PO ONE (12:15)
[2017-06-27] MEDS ORDERED: LABETALOL HCL 5 MG/ML ML 20ML VIAL IV ONE (13:00)
[2017-06-27 15:14] VITALS: BP 154/84
== END 2017-06-27 15:23 | disposition home or self-care (01) ==
LOC: EDBD 08:39 → ER 08:39
DX: I13.0 Hypertensive heart and chronic kidney disease with heart failure and stage 1 through stage 4 chronic kidney disease, or unspecified chronic kidney disease (principal); N18.9 Chronic kidney disease, unspecified; I50.9 Heart failure, unspecified; I25.10 Atherosclerotic heart disease of native coronary artery without angina pectoris; I48.91 Unspecified atrial fibrillation; E11.22 Type 2 diabetes mellitus with diabetic chronic kidney disease; N28.9 Disorder of kidney and ureter, unspecified; E03.9 Hypothyroidism, unspecified; J44.1 Chronic obstructive pulmonary disease with (acute) exacerbation; M06.9 Rheumatoid arthritis, unspecified; M81.0 Age-related osteoporosis without current pathological fracture; C44.122 Squamous cell carcinoma of skin of right eyelid, including canthus; E78.5 Hyperlipidemia, unspecified; Z95.0 Presence of cardiac pacemaker; Z86.73 Personal history of transient ischemic attack (TIA), and cerebral infarction without residual deficits
CPT/HCPCS: 36415; 71046; 80053; 81002; 84484; 85025; 93005; 96374; 96375; 99285; J1940